=== PATIENT | female | born 1950 | race African-American/Black ===

== ENCOUNTER 2017-01-13 09:02 | Observation (INO) ==
[2017-01-13] MEDS ORDERED: DUONEB (A & A) INH ONE (09:19)
[2017-01-13] MEDS ORDERED: SOLU-MEDROL IV ONE (09:19)
--- NOTE | 2017-01-13 10:12 | Diag Imaging Result Document ---
PROCEDURE NAME: CHEST-2 VIEWS - 01/13/2017 CHEST X-RAY, 2 VIEWS: COMPARISON: 07/22/2016. FINDINGS: Stable left chest port in good position. Stable cardiomegaly and diffuse pulmonary vascular congestion. Stable calcified granulomas in the hilum on the left. No focal infiltrates. No pneumothorax or pleural effusion. Stable high-grade compression fracture at the lower thoracic spine. IMPRESSION: Cardiomegaly and pulmonary vascular congestion. No definite edema.
[2017-01-13 10:16] LABS: BLOOD TYPE ARTERIAL; DRAW SITE R RADIAL; METHB 2.3 % (0.0-1.5); O2(CT) 7.5 mL/dL (15.0-23.0); PCO2(98.6) 32 mmHg (35-45); PO2(98.6) 76 mmHg (60-100); SAMPLE BLOOD; SAO2 95.9 % (95.0-100.0); THB 5.9 g/dL (11.5-17.4); pH(98.6) 7.41 (7.35-7.45)
[2017-01-13 10:18] LABS: MODALITY ROOM AIR
[2017-01-13 10:19] LABS: ALLEN TEST YES
[2017-01-13 10:21] LABS: BASO% 1.8 % (0.0-0.8); EOS# 0.61 X1000 (0.0-0.7); EOS% 6.9 % (0.0-10.0); HEMATOCRIT 17.1 % (37.0-47.0); IMM GRAN# 0.02 X1000 (0.0-0.04); IMM GRAN% 0.2 % (0.0-0.5); LYMPH% 33.8 % (20.5-51.1); MCH 32.4 PG (27-31); MCHC 33.3 g/dL (33-37); MCV 97.2 FL (81-99); MONO# 1.24 X1000 (0.11-0.59); MPV 10.9 FL (7.4-10.4); NEUT% 43.3 % (42.2-75.2); PLT 217 X1000 (130-400); RBC 1.76 XMIL (4.2-5.4)
[2017-01-13 10:22] LABS: HEMOGLOBIN 5.7 g/dL (12.0-16.0); MANUAL DIFF NEEDED? NO
[2017-01-13 10:23] LABS: ALBUMIN 3.9 g/dL (3.5-5.0); CALCIUM 8.7 mg/dL (8.8-10.2); INR 1.29 (0.86-1.15); MAGNESIUM 2.1 mg/dL (1.5-2.7); POTASSIUM 5.2 mmol/L (3.5-5.1); PROTIME 16.4 Seconds (12.1-15.5); TOTAL BILIRUBIN 4.4 mg/dL (0.20-1.00); TOTAL PROTEIN 7.2 g/dL (6.3-8.3)
[2017-01-13 10:25] LABS: RETIC% 22.18 % (0.8-2.1); RETIC-HE 31.5 PG (28.2-36.6)
[2017-01-13 10:33] LABS: AMYLASE 120 U/L (20-200); LIPASE 99 U/L (13-60)
--- NOTE | 2017-01-13 10:36 | EKG Report ---
Test Performed on : 01/13/2017 09:57:38 AM Test Reason : CHEST PAIN Blood Pressure : / mmHG Vent. Rate : 104 BPM Atrial Rate : 104 BPM P-R Int : 170 ms QRS Dur : 082 ms QT Int : 358 ms P-R-T Axes : 039 062 -07 degrees QTc Int : 470 ms Sinus tachycardia. Cannot rule out Inferior infarct , age undetermined Abnormal ECG When compared with ECG of 22-JUL-2016 09:04, Minimal criteria for Inferior infarct are now present Inverted T waves have replaced nonspecific T wave abnormality in Inferior leads T wave amplitude has increased in Lateral leads Unconfirmed Result
[2017-01-13] MEDS ORDERED: NS 1,000 ML IV ONE (10:39)
--- NOTE | 2017-01-13 10:42 | PROVIDER DOCUMENTATION ---
HPI-Respiratory General - General Chief Complaint: Shortness of Breath Stated Complaint: SOB Time Seen by Provider: 01/13/17 09:19 Source: patient Allergies/Adverse Reactions: Patient Allergies Allergy/AdvReac Type Severity Reaction Status Date / Time oxycodone HCl * AdvReac Intermediate NAUSEA/VOMI Verified 09/18/16 14:40 [From Percocet] TING Home Medications: Home Medication List Medication Instructions Recorded Confirmed Last Taken Type Hydrocodone/Acetaminophen [Lortab 10 tab PO Q4-6H PRN PRN 08/22/12 09/18/1605/29 18:00 History 10-500 Tablet] Metoprolol [Lopressor] 50 mg PO BID 08/22/12 09/18/16 07/21/16 18:00 History Losartan/Hctz [Hyzaar 50/12.5 mg] 1 tab PO DAILY 06/18/13 09/18/16 04/21/16 10: 00 History 1 EACH Folic Acid 1 mg PO DAILY 04/04/15 09/18/16 07/21/16 09:00 History Furosemide [Lasix] 40 mg PO DAILY 10/06/15 09/18/16 07/21/16 09:00 History Cyanocobalamin (Vitamin B-12) 1,000 mcg PO DAILY 12/26/15 09/18/16 07/21/16 History [Vitamin B12] 1 Hydroxyzine Pamoate [Vistaril] 25 mg PO 4XDAY #100 capsule 06/16/16 09/18/1605/29 18:00 Rx Levothyroxine [Synthroid] 50 microgm PO DAILY@0700 #30 tablet 09/21/16 Unknown Rx - History of Present Illness-Resp Nature of Presenting Problem: 66 yo AAF with hx of sickel cell disease presents to ED with cc of SoB and cough x 2-3 days. Pt reports current sickel cell crisis pain and that she is supposed to have a transfusion today. Upon arrival to ED, pt is in mild distress. Quality of Pain: reports: other (sickel cell flare in addition to respiratory symptoms) Severity in ED: reports: mild, moderate Onset/Duration: reports: abrupt, 2 days ago, 3 days ago Timing: reports: still present Context: denies: recent foreign travel, insect bite (possible tick), recent chemotherapy, multiple patients with similar complaints, recent URI, out of meds , sports/exercise, aspiration/choking, other Cough Quality/Degree: reports: dry cough Current Respiratory Medication Therapy: Initiated none Associated Symptoms: reports: cough, shortness of breath Similar Symptoms Previously?: No Recently seen or treated by another doctor?: No Review of Systems - Adult - REVIEW OF SYSTEMS - ADULT Constitutional: reports: no symptoms reported. denies: chills, fever Eyes: reports: no symptoms reported. denies: blurred vision, double vision Ears, Nose, Mouth & Throat: reports: no symptoms reported. denies: ear pain, nose pain Cardiovascular: reports: no symptoms reported. denies: chest pain, palpitations Respiratory: reports: cough, shortness of breath Gastrointestinal: reports: no symptoms reported. denies: abdominal pain, nausea Genitourinary: reports: no symptoms reported. denies: dysuria, flank pain Musculoskeletal: reports: no symptoms reported. denies: bone pain, joint pain, muscle aches Integumentary: reports: no symptoms reported. denies: hives, itching Neurological: reports: no symptoms reported. denies: dizziness/vertigo, numbness Psychiatric: reports: no symptoms reported. denies: anxiety, depression Endocrine: reports: no symptoms reported. denies: cold intolerance, heat intolerance Hematologic/Lymphatic: reports: other (sickel cell crisis). denies: blood clots , low blood count Allergic/Immunologic: reports: no symptoms reported. denies: allergic reactions , eczema All Other Systems: Reviewed and Negative Past History - Adult - PAST MEDICAL HISTORY-ADULT Review of Records: reports: Old Records Reviewed, Nursing Assessment Review, Medications Reviewed Cardiovascular: reports: CHF, HTN Respiratory: denies: asthma, bronchitis, COPD, pneumonia Gastrointestinal: reports: cholelithiasis Genitourinary: denies: kidney disease, kidney stones, polycystic kidney disease Musculoskeletal: reports: chronic pain Endocrine/Immune: reports: Sickle Cell disease Sickle Cell Genotype:: SS Other Conditions: - PRIOR SURGERIES/PROCEDURES Surgical/Procedure History: reports: cholecystectomy, hysterectomy, tonsillectomy, other (port) - PRIOR HOSPITALIZATIONS Prior Hospitalizations: reports: for similar symptoms - IMMUNIZATION STATUS Childhood Immunizations: See Nurse Assessment Flu Vaccine: See Nurse Assessment - FAMILY HISTORY Family History: hereditary disease Physical Exam-General - PHYSICAL EXAM-ADULT Initial Vital Signs Reviewed: Yes - CONSTITUTIONAL General Appearance: appears well, alert, mild distress - EYES Eyes: PERRL/EOMI, pink conjunctivae - HEAD, EARS, NOSE, MOUTH & THROAT HENMT: normocephalic/atraumatic, moist mucous membranes - NECK Neck: full range of motion, supple - RESPIRATORY Respiratory: chest non-tender, lungs clear, normal breath sounds - CARDIOVASCULAR Cardiovascular: normal peripheral pulses, regular rate, rhythm - CHEST (BREASTS) Chest/Breast: deferred - GASTROINTESTINAL (ABDOMEN) Abdominal Exam: normal bowel sounds, non tender, soft - GENITOURINARY Female Genitalia/Pelvic Exam: deferred - LYMPHATIC Lymphatic: no adenopathy - MUSCULOSKELETAL Back Exam: normal inspection, no vertebral tenderness Extremity: normal range of motion, non-tender, no pedal edema - SKIN Integumentary: normal color, normal turgor, warm/dry - NEUROLOGIC Neurologic: grossly normal, no motor/sensory deficits - PSYCHIATRIC Psych/Mental Status: normal mood/affect, normal thought content, normal thought process, oriented x 3 Progress - PLAN OF CARE/RESULTS Progress/Plan/Lab Results: Vital Signs - 24 hr 01/13/17 01/13/17 09:10 10:48 Temperature 97.6 F Pulse Rate 112 H 112 H Respiratory 24 24 Rate Blood Pressure 168/81 O2 Sat by Pulse 94 L 96 Oximetry Orders Category Date Time Status Cardiac Monitoring DIRECTED Care 01/13/17 09:13 Active Oxygen Therapy- ED Nursing DIRECTED Care 01/13/17 09:13 Active Saline Loc NOW Care 01/13/17 09:13 Active Transfuse .Give-Transfuse Care 01/13/17 10:54 Active CHEST-2 VIEWS [RAD] Stat Exams 01/13/17 09:13 Draft ABG [RESP] Routine Lab 01/13/17 09:45 Completed AMYLASE [CHEM] Stat Lab 01/13/17 09:40 Completed BLOOD CULTURE [BLDCUL] Stat Lab 01/13/17 09:19 Ordered CBC WITH ELECTRONIC DIFF [HEME] Stat Lab 01/13/17 09:40 Completed CK PROFILE [SP CHEM] Stat Lab 01/13/17 09:40 Completed COMPREHENSIVE METABOLIC PANEL [CHEM] Stat Lab 01/13/17 09:40 Completed LIPASE [CHEM] Stat Lab 01/13/17 09:40 Completed LRPC (RED CELLS) [BBK] Routine Lab 01/13/17 09:40 Results MAGNESIUM [CHEM] Stat Lab 01/13/17 09:40 Completed PRO B-NATRIURETIC PEPTIDE Stat Lab 01/13/17 09:40 Completed PROTIME WITH INR PL [COAG] Stat Lab 01/13/17 09:[address] [COAG] Stat Lab 01/13/17 09:40 Completed RETIC COUNT [HEME] Stat Lab 01/13/17 09:40 Completed TROPONIN T Stat Lab 01/13/17 09:40 Completed TYPE & SCREEN [BBK] Stat Lab 01/13/17 09:40 Results UA [URINALYSIS PL W/POSS RFLX CULT] [URINALYSIS] Stat Lab 01/13/17 Results 0.9% Sodium Chloride Inj [Ns] 1,000 ml Med 01/13/17 10:39 Discontinued IV 250 mls/hr 0.9% Sodium Chloride Inj [Ns] 500 ml Med 01/13/17 10:54 Discontinued IV As Directed 0.9% Sodium Chloride Inj [Ns] 500 ml Med 01/13/17 10:55 Discontinued IV As Directed Albuterol 2.5MG/Ipratrop 0.5MG [Duoneb (A & A)] Med 01/13/17 09:19 Discontinued 3 ml INH NOW ONE Furosemide [Lasix] Med 01/13/17 11:00 Active 40 mg IV AFTER TRANSFUSION Hydrocodone/APAP 7.5 mg/325 mg [[place]-7.5] Med 01/13/17 10:56 Discontinued 1 each PO NOW ONE Levofloxacin 750 mg/D5w [Levaquin 750 mg/D5w] 150 ml Med 01/13/17 10:46 Active IV NOW Methylprednisolone Sod Succ [Solu-Medrol] Med 01/13/17 09:19 Discontinued 125 mg IV NOW ONE Aerosol Treatments Routine Oth 01/13/17 09:20 Completed Aerosol Treatments Stat Oth 01/13/17 09:20 Completed EKG [EKG] Stat Ther 01/13/17 09:13 Draft Transfer/Admit Order [TRANSFER] Routine Transfer 01/13/17 10:55 Ordered Laboratory Tests 01/13/17 01/13/17 01/13/17 09:40 09:40 09:40 WBC RBC Hgb Hct MCV MCH MCHC RDW Std Deviation Plt Count MPV Immature Gran % (Auto) Neut % (Auto) Lymph % (Auto) [place] % (Auto) Eos % (Auto) Baso % (Auto) Immature Gran # (Auto) Neut # (Auto) Lymph # (Auto) [place] # (Auto) Eos # (Auto) Baso # (Auto) Segmented Neutrophils Percent Retic Retic Hgb Equivalent PT INR APTT (Factor Assay) Specimen Type Sample Site pH pCO2 pO2 HCO3 Base Excess Oxyhemoglobin ABG O2 Sat (Calculated) ABG O2 Saturation ABG Carboxyhemoglobin ABG Methemoglobin [place] Test A-a O2 Difference Total Hemoglobin Lactate Blood Gas Modality FiO2 % Sodium 139 Potassium 5.2 H Chloride 108 H Carbon Dioxide 20 L Anion Gap 11 BUN 21 Creatinine 1.2 H Estimated GFR/1.73 m2 45 BUN/Creatinine Ratio 18 Glucose 125 H Calculated Osmolality 282 Calcium 8.7 L Magnesium 2.1 Total Bilirubin 4.40 H AST 73 H ALT 34 Alkaline Phosphatase 107 H Creatine Kinase 47 Troponin T < 0.010 [id number]-Ryuuszykmxt Pept 940 H Total Protein 7.2 Albumin 3.9 Globulin 3.0 Albumin/Globulin Ratio 1.0 Amylase Lipase Urine Source Urine Color Urine Clarity Urine pH Ur Specific [place] Urine Protein Urine Ketones Urine Blood Urine Nitrite Urine Bilirubin Urine Urobilinogen Urine WBC Urine Glucose Blood Type Antibody Screen Crossmatch 01/13/17 01/13/17 01/13/17 09:40 09:40 09:40 WBC 8.88 RBC 1.76 L Hgb 5.7 L* Hct 17.1 L MCV 97.2 MCH 32.4 H MCHC 33.3 RDW Std Deviation 26.5 H Plt Count 217 MPV 10.9 H Immature Gran % (Auto) 0.2 Neut % (Auto) 43.3 Lymph % (Auto) 33.8 [place] % (Auto) 14.0 H Eos % (Auto) 6.9 Baso % (Auto) 1.8 H Immature Gran # (Auto) 0.02 Neut # (Auto) 3.85 Lymph # (Auto) 3.00 [place] # (Auto) 1.24 H Eos # (Auto) 0.61 Baso # (Auto) 0.16 Segmented Neutrophils Not Reportable Percent Retic Retic Hgb Equivalent PT 16.4 H INR 1.29 H APTT (Factor Assay) 164.6 H* Specimen Type Sample Site pH pCO2 pO2 HCO3 Base Excess Oxyhemoglobin ABG O2 Sat (Calculated) ABG O2 Saturation ABG Carboxyhemoglobin ABG Methemoglobin [place] Test A-a O2 Difference Total Hemoglobin Lactate Blood Gas Modality FiO2 % Sodium Potassium Chloride Carbon Dioxide Anion Gap BUN Creatinine Estimated GFR/1.73 m2 BUN/Creatinine Ratio Glucose Calculated Osmolality Calcium Magnesium Total Bilirubin AST ALT Alkaline Phosphatase Creatine Kinase Troponin T [id number] Pept Total Protein Albumin Globulin Albumin/Globulin Ratio Amylase 120 Lipase 99 H Urine Source Urine Color Urine Clarity Urine pH Ur Specific [place] Urine Protein Urine Ketones Urine Blood Urine Nitrite Urine Bilirubin Urine Urobilinogen Urine WBC Urine Glucose Blood Type Antibody Screen Crossmatch 01/13/17 01/13/17 01/13/17 09:40 09:40 09:45 WBC RBC Hgb Hct MCV MCH MCHC RDW Std Deviation Plt Count MPV Immature Gran % (Auto) Neut % (Auto) Lymph % (Auto) [place] % (Auto) Eos % (Auto) Baso % (Auto) Immature Gran # (Auto) Neut # (Auto) Lymph # (Auto) [place] # (Auto) Eos # (Auto) Baso # (Auto) Segmented Neutrophils Percent Retic 22.18 H Retic Hgb Equivalent 31.5 PT INR APTT (Factor Assay) Specimen Type ARTERIAL Sample Site R RADIAL pH 7.41 pCO2 32 L pO2 76 HCO3 21.8 Base Excess -4.0 L Oxyhemoglobin 89.0 L* ABG O2 Sat (Calculated) 7.5 L ABG O2 Saturation 95.9 ABG Carboxyhemoglobin 4.90 H ABG Methemoglobin 2.3 H [place] Test YES A-a O2 Difference 34.0 Total Hemoglobin 5.9 L Lactate 0.90 Blood Gas Modality ROOM AIR FiO2 % 21.0 Sodium Potassium Chloride Carbon Dioxide Anion Gap BUN Creatinine Estimated GFR/1.73 m2 BUN/Creatinine Ratio Glucose Calculated Osmolality Calcium Magnesium Total Bilirubin AST ALT Alkaline Phosphatase Creatine Kinase Troponin T [id number]-Rpoywcyjlzi Pept Total Protein Albumin Globulin Albumin/Globulin Ratio Amylase Lipase Urine Source Urine Color Urine Clarity Urine pH Ur Specific [place] Urine Protein Urine Ketones Urine Blood Urine Nitrite Urine Bilirubin Urine Urobilinogen Urine WBC Urine Glucose Blood Type A POSITIVE Antibody Screen NEGATIVE Crossmatch See Detail 01/13/17 Unknown WBC RBC Hgb Hct MCV MCH MCHC RDW Std Deviation Plt Count MPV Immature Gran % (Auto) Neut % (Auto) Lymph % (Auto) [place] % (Auto) Eos % (Auto) Baso % (Auto) Immature Gran # (Auto) Neut # (Auto) Lymph # (Auto) [place] # (Auto) Eos # (Auto) Baso # (Auto) Segmented Neutrophils Percent Retic Retic Hgb Equivalent PT INR APTT (Factor Assay) Specimen Type Sample Site pH pCO2 pO2 HCO3 Base Excess Oxyhemoglobin ABG O2 Sat (Calculated) ABG O2 Saturation ABG Carboxyhemoglobin ABG Methemoglobin [place] Test A-a O2 Difference Total Hemoglobin Lactate Blood Gas Modality FiO2 % Sodium Potassium Chloride Carbon Dioxide Anion Gap BUN Creatinine Estimated GFR/1.73 m2 BUN/Creatinine Ratio Glucose Calculated Osmolality Calcium Magnesium Total Bilirubin AST ALT Alkaline Phosphatase Creatine Kinase Troponin T [id number]-M-Uyedgcdepzs Pept Total Protein Albumin Globulin Albumin/Globulin Ratio Amylase Lipase Urine Source CLEAN CATCH Urine Color YELLOW Urine Clarity CLEAR Urine pH 7.0 Ur Specific [place] 1.005 Urine Protein 2+(100 mg/dL) A Urine Ketones NEGATIVE Urine Blood 4+ Urine Nitrite NEGATIVE Urine Bilirubin NEGATIVE Urine Urobilinogen 4+(12 mg/dL) Urine WBC TRACE A Urine Glucose NEGATIVE Blood Type Antibody Screen Crossmatch - EKG 1 Time of EKG reading by physician:: 09:57 EKG Read and Signed by:: Kristie Nichole EKG Interpretation (*Must complete 3 of following elements*): Abnormal Rate: 104 Rhythm: sinus tachycardia [place]: normal Comments: cannot rule out inferior infarct, age undetermined Attestation - Scribe Verification/Attestation Scribe:: Elsy Turcios Acting as Scribe for:: Kristie Nichole Scribe documention review:: This chart was documented by a scribe and accurately reflects the service the provider performed and the decisions made by the provider. - Physician/ SEBASTIAN Attestation Patient care was provided by Advanced Practice Provider:: No
[2017-01-13] MEDS ORDERED: LEVAQUIN 750 MG/D5W 150 ML IV ONE (10:46)
[2017-01-13 10:54] LABS: PTT PL 164.6 Seconds (22.6-43.9)
[2017-01-13] MEDS ORDERED: NS 500 ML IV ONE ×3 (10:54→11:44)
[2017-01-13] MEDS ORDERED: NORCO-7.5 PO ONE (10:56)
[2017-01-13 11:01] LABS: URINE SOURCE CLEAN CATCH
[2017-01-13 11:32] LABS: BILIRUBIN URINE NEGATIVE (NEGATIVE); BLOOD URINE 4+ (NEGATIVE); CLARITY CLEAR (CLEAR); COLOR YELLOW; GLUCOSE URINE NEGATIVE (NEGATIVE); LEUKOCYTES URINE TRACE (NEGATIVE); NITRITE URINE NEGATIVE (NEGATIVE); PROTEIN URINE 2+(100 mg/dL) mg/dL (NEGATIVE); SP GRAVITY URINE 1.005; UROBILINOGEN URINE 4+(12 mg/dL)
[2017-01-13] MEDS ORDERED: BENADRYL PO ONE (11:44)
[2017-01-13] MEDS ORDERED: TYLENOL PO ONE (11:44)
[2017-01-13 11:51] LABS: URINE EPITHELIAL CELLS <10 /HPF (<10); URINE RBC <10 /HPF (<10); URINE WBC <10 /HPF (<10)
[2017-01-13 11:52] LABS: URINE CULTURE PL NEEDED? YES
--- NOTE | 2017-01-13 12:56 | HISTORY AND PHYSICAL ---
PRIMARY CARE PHYSICIAN: Dr. Shefali Posadas. CHIEF COMPLAINT: Shortness of breath and cough for 2-3 days prior to arrival that have worsened. HISTORY OF PRESENTING ILLNESS: This is a 66-year-old, -[place] female, who is well known to this service with a history of sickle cell disease, COPD, chronic pain, CHF. She presents to the emergency room complaining of shortness of breath and a cough for 2-3 days that has progressively worsened. She states she is also having sickle cell pain that is generalized. She rated it an 8/10. She states she was supposed to have an outpatient blood transfusion today but that the pain had increased to the point that she came to the emergency room for evaluation. On arrival, she was noted to have a hemoglobin of 5.7 with a hematocrit of 17.1. Her percent reticulocyte 22.18. She had a potassium of 5.2. Creatinine of 1.2 which is normal for her. Vital Signs: She was noted to be mildly tachycardic at 112 with a blood pressure of 168/81, saturating 94% on room air. Currently she is 96% on 2 L via nasal cannula. She is being admitted for further evaluation and treatment. PAST MEDICAL HISTORY: CHF, hypertension, COPD, and sickle cell disease. PAST SURGICAL HISTORY: Cholecystectomy, hysterectomy, tonsillectomy, and a port placement. FAMILY HISTORY: Two brothers and a sister both have sickle cell disease. SOCIAL HISTORY: She lives with family and denies any tobacco, alcohol, or illicit drug use. ALLERGIES: Oxycodone. HOME MEDICATIONS: We will obtain a current list of her home medications and restart as appropriate. LABORATORY DATA: White blood cell count of 8.88, hemoglobin of 5.7, hematocrit 17.1, platelets 217,000. Percent reticulocyte count was 22.18. PT of 16.4 with an INR of 1.29. PTT of 164.6. ABG with a pH of 7.41, pCO2 of 32, PO2 of 76, bicarb 21.8. Sodium of 139, potassium 5.2, chloride 108. CO2 of 20. BUN of 21, creatinine 1.2, glucose 125. Magnesium of 2.1. Total bilirubin of 4.40. AST 73, ALT 34. Alkaline phosphatase 107. ProBNP of 940. Creatine kinase of 47. Troponin less than 0.010. Amylase of 120, lipase 99. Urinalysis showed negative nitrites, a trace of white blood cells and 2+ bacteria. Chest x-ray showed cardiomegaly and pulmonary vascular congestion. No definite edema. EKG showed sinus tachycardia at 104. REVIEW OF SYSTEMS: She denied any fever, chills, blurred vision, dizziness, chest pain. She was positive for a nonproductive cough, shortness of breath, generalized pain. She denied any constipation, diarrhea, or burning or hurting with urination. PHYSICAL EXAMINATION: VITAL SIGNS: On arrival, she had a temperature of 97.6 degrees, pulse 112, respirations 24, blood pressure 168/81, saturating 94% on room air. GENERAL: This is a 66-year-old female who is lying in the bed, and answers questions appropriately. HEENT: Normocephalic and atraumatic. Pupils are equal, round, AND reactive to light. Extraocular movements are intact. The oropharynx and nares are clear. NECK: Supple. LUNGS: Clear to auscultation bilaterally with equal lung expansion and chest wall movement. HEART: Regular rate and rhythm. No murmurs, rubs, or gallops. ABDOMEN: Soft, nontender, nondistended. Bowel sounds are present x4 quadrants. EXTREMITIES: There is no clubbing, cyanosis, or edema. NEUROLOGIC: The cranial nerves 2-12 are grossly intact. ASSESSMENT: 1. Sickle cell anemia. 2. Sickle cell crisis. 3. Hypertension. 4. Chronic obstructive pulmonary disease, history of. PLAN: She is being admitted to the medical unit at [facility], placed on O2 per protocol, telemetry, healthy heart diet. We will check an echocardiogram today. We will transfuse 2 units of packed red blood cells. We will recheck a CBC and a BMP in the a.m. In the ER, she received Solu-Medrol 125 mg IV x1, 250 mL normal saline bolus, Levaquin 750 mg IV x1, Dilaudid 1 mg IV q. 3 hours p.r.n., Tylenol 650 mg p.o. q.6 hours p.r.n., and Lasix 40 mg IV after her transfusions are completed, and a urine culture is pending. Dictated by TAM Alexander for Charly Moraes MD
[2017-01-13] MEDS: DILAUDID IV PRN ×2 (15:24→23:14)
[2017-01-13] MEDS ORDERED: NORCO-7.5 PO PRN (16:19)
[2017-01-13] MEDS: LASIX IV SCH ×2 (17:41→23:14)
[2017-01-13 20:45] LABS: INR MIXING STUDY 0 MIN 1.07; INR MIXING STUDY 30 MIN 1.07; INR MIXING STUDY 60 MIN 1.07; PROTIME MIXING STUDY 3O MIN 11.3 Seconds (9.2-11.7); PROTIME MIXING STUDY 6O MIN 11.3 Seconds (9.2-11.7); PROTIME MIXING STUDY O MIN 11.3 Seconds (9.2-11.7); PTT MIXING STUDY 3O MIN 28.3 Seconds (22.0-36.0); PTT MIXING STUDY O MIN 26.8 Seconds (22.0-36.0)
[2017-01-13 20:46] LABS: INR MIXING STUDY 120 MIN 1.1; INR MIXING STUDY 90 MIN 1.08; PROTIME MIXING STUDY 12O MIN 11.7 Seconds (9.2-11.7); PROTIME MIXING STUDY 9O MIN 11.5 Seconds (9.2-11.7); PTT MIXING STUDY 12O MIN 30.7 Seconds (22.0-36.0); PTT MIXING STUDY 6O MIN 29.4 Seconds (22.0-36.0); PTT MIXING STUDY 9O MIN 30.8 Seconds (22.0-36.0)
[2017-01-13] MEDS: TYLENOL PO PRN (21:00)
[2017-01-14 06:26] LABS: CALCIUM 8.7 mg/dL (8.8-10.2); POTASSIUM 5.9 mmol/L (3.5-5.1)
[2017-01-14 06:39] LABS: BASO% 0.3 % (0.0-0.8); EOS# 0.09 X1000 (0.0-0.7); EOS% 0.8 % (0.0-10.0); HEMATOCRIT 23.2 % (37.0-47.0); HEMOGLOBIN 7.8 g/dL (12.0-16.0); IMM GRAN# 0.03 X1000 (0.0-0.04); IMM GRAN% 0.3 % (0.0-0.5); LYMPH# 2.41 X1000 (1.2-3.4); LYMPH% 22.5 % (20.5-51.1); MANUAL DIFF NEEDED? YES; MCHC 33.6 g/dL (33-37); MCV 86.2 FL (81-99); MONO# 1.52 X1000 (0.11-0.59); MONO% 14.2 % (1.7-9.3); MPV 11.2 FL (7.4-10.4); NEUT% 61.9 % (42.2-75.2); PLT 193 X1000 (130-400); RBC 2.69 XMIL (4.2-5.4)
[2017-01-14 08:32] LABS: LYMPHS 22 % (21-51); MONO 7 % (1-9)
[2017-01-14] MEDS: DILAUDID IV PRN ×2 (10:27→17:22)
[2017-01-14] MEDS ORDERED: NORCO-10 PO PRN (15:34)
[2017-01-14] MEDS ORDERED: NS 500 ML IV ONE (15:46)
[2017-01-14] MEDS ORDERED: LASIX IV ONE (15:49)
[2017-01-14] MEDS ORDERED: VELTASSA PO ONE (15:51)
--- NOTE | 2017-01-14 16:13 | PROGRESS NOTE ---
DATE: 01/14/2017 SUBJECTIVE: Patient has no focal complaints. OBJECTIVE: Vital signs: Blood pressure 167/77, heart rate of 80, respiratory rate 18, temperature 98.4 degrees, 100% saturation on room air. Cardiovascular: Regular rate and rhythm. Pulmonary: Bilateral breath sounds. Clear to auscultation. GI: Soft, nontender, nondistended. Bowel sounds were positive. Extremities: No clubbing or cyanosis. Lymphatic exam: No peripheral edema. Neurological: Nonfocal. LABORATORY DATA: Hemoglobin and hematocrit is up to 7.8 and 23 after 2 units. Chemistries. Potassium of 5.9, creatinine of 1.4. PROBLEM LIST: 1. Sickle cell disease and anemia. We will transfuse her 1 more unit because she does have significant history of cardiac issues. 2. Hypertension. Resume Norvasc. 3. Chronic renal failure stage 2. I am going to hold her lisinopril just because she does have relative hyperkalemia and follow. Will treat with Veltassa. 4. Disposition pending resolution of her issues. I am still waiting on echocardiogram report to evaluate for any heart failure.
[2017-01-14] MEDS: NORVASC PO SCH (17:22)
--- NOTE | 2017-01-14 17:45 | ECHO REPORT ---
ORDER DATE: 01/14/2017 INTERPRETING PHYSICIAN: Dr. Vazquez REQUESTING PHYSICIAN: CLINICAL INDICATIONS: A 66-year-old female with sickle cell crisis. M-MODE MEASUREMENTS: Right ventricle: 3.3 cm. Left ventricle end diastole: 5.3 cm. Left ventricle end systole: 3.7 cm. Posterior wall: 1.1 cm. Interventricular septum: 1.1 cm. Left atrium: 5.0 cm. Aortic root: 3.0 cm. SUMMARY OF 2-DIMENSIONAL IMAGING: The left ventricular chamber appears to be dilated. The global ejection fraction is probably within normal range in the order of 55-60%. No wall motion abnormality is present. The right ventricle appears to be at least mildly enlarged. The left atrium is significantly dilated. The aortic valve shows some thickening of the cusps with normal opening. Color flow mapping unremarkable. The mitral valve shows some sclerosis of the annulus. Color flow mapping reveals a moderate degree of regurgitation. Pulse wave Doppler of mitral inflow shows "normal" E/A ratio. Tissue Doppler of septal and lateral mitral annulus averages 8 cm per second. The left atrial pressure is probably elevated based on the significant enlargement of the left atrium. The tricuspid valve shows a moderate degree of regurgitation. The inferior vena cava is mildly dilated. Pulmonary pressure is probably somewhere in the range of 67-72 mmHg. The pulmonic valve shows a mild to moderate degree of regurgitation. There is no pericardial effusion. There is no evidence or mass or thrombus. IMPRESSION: In summary, this study shows: 1. Moderately enlarged left ventricle with preserved function. Ejection fraction 55-60%. 2. Moderate degree of mitral and tricuspid regurgitation. 3. Significantly enlarged left atrium. 4. Pulmonary hypertension estimated at 67-72 mmHg. 5. There is also a mild to moderate degree of pulmonary regurgitation. Clinical correlation recommended.
[2017-01-14] MEDS: LOPRESSOR PO SCH (20:20)
[2017-01-15 07:25] LABS: HEMATOCRIT 26.5 % (37.0-47.0); MCH 29.1 PG (27-31); MCV 85.8 FL (81-99); MPV 10.6 FL (7.4-10.4); RBC 3.09 XMIL (4.2-5.4)
[2017-01-15 07:48] LABS: CALCIUM 8.7 mg/dL (8.8-10.2)
[2017-01-15 07:55] LABS: POTASSIUM 6.2 mmol/L (3.5-5.1)
[2017-01-15] MEDS: VITAMIN B-12 PO SCH (08:18)
[2017-01-15] MEDS: LOPRESSOR PO SCH ×2 (08:18→20:40)
[2017-01-15] MEDS: NORVASC PO SCH (08:18)
[2017-01-15] MEDS: FOLIC ACID PO SCH (08:18)
[2017-01-15] MEDS ORDERED: LASIX PO SCH (09:00)
[2017-01-15] MEDS ORDERED: HCTZ PO SCH (09:00)
[2017-01-15] MEDS ORDERED: LOSARTAN PO SCH (09:00)
[2017-01-15] MEDS ORDERED: VELTASSA PO ONE (10:09)
--- NOTE | 2017-01-15 12:37 | PROGRESS NOTE ---
DATE: 01/15/2017 SUBJECTIVE: Patient resting quietly in bed. No complaints voiced. OBJECTIVE: Vital Signs: Temperature 98.6 degrees, pulse 89, respirations 20, blood pressure 148/78, saturating 95% on room air. General: This is a 66-year-old female who is lying in the bed, and answers questions appropriately. HEENT: Normocephalic and atraumatic. Pupils are equal, round, reactive to light. Extraocular movements are intact. The oropharynx and nares are clear. Neck: Supple. Lungs: Clear to auscultation bilaterally with equal lung expansion and chest wall movement. Heart: With regular rate and rhythm. No murmurs, rubs, or gallops. Abdomen: Soft, nontender, nondistended. Bowel sounds are present x4 quadrants. Extremities: No clubbing, cyanosis, or edema. Neurological: The cranial nerves 2-12 are grossly intact. LABORATORY DATA: Showed a white blood cell count of 9.13, hemoglobin 9, hematocrit 26.5, platelets 202,000. Sodium of 134, potassium of 6.2, chloride 104, CO2 20, BUN of 30 with a creatinine of 1.2, glucose of 102. ASSESSMENT: 1. Sickle cell disease and anemia. Her hemoglobin and hematocrit have improved after she received 1 unit of packed red blood cells yesterday. 2. Hyperkalemia. She was to get a dose of Veltassa yesterday but it appears that she did not get that so her potassium has gone up a little bit from 5.9 yesterday to 6.2. We did reorder the Veltassa 8.4 g x1 today and will recheck a BMP in the a.m. 3. Hypertension. Continue her medication regimen. 4. Chronic renal failure, stage 2. Her creatinine has improved slightly. We will continue to hold her lisinopril at this time. Her echocardiogram showed that she has an ejection fraction of 55-60% with preserved left ventricular function. She has a moderate degree of mitral and tricuspid regurgitation and some pulmonary regurgitation that is mild to moderate also. Dictated by TAM Alexander for Charly Moraes MD
--- NOTE | 2017-01-15 18:29 | EKG Report ---
Test Performed on : 01/15/2017 6:11:34 PM Test Reason : hyperkalemia Blood Pressure : / mmHG Vent. Rate : 085 BPM Atrial Rate : 085 BPM P-R Int : 172 ms QRS Dur : 088 ms QT Int : 386 ms P-R-T Axes : 068 070 040 degrees QTc Int : 459 ms Normal sinus rhythm. Normal ECG When compared with ECG of 13-JAN-2017 09:57, Minimal criteria for Inferior infarct are no longer present Non-specific change in ST segment in Lateral leads T wave inversion no longer evident in Inferior leads T wave inversion no longer evident in Lateral leads Unconfirmed Result
[2017-01-16 06:46] LABS: BASO% 1.3 % (0.0-0.8); EOS# 0.65 X1000 (0.0-0.7); EOS% 8.1 % (0.0-10.0); HEMOGLOBIN 8.7 g/dL (12.0-16.0); IMM GRAN# 0.02 X1000 (0.0-0.04); IMM GRAN% 0.3 % (0.0-0.5); LYMPH# 2.41 X1000 (1.2-3.4); LYMPH% 30.2 % (20.5-51.1); MANUAL DIFF NEEDED? YES; MCHC 33.5 g/dL (33-37); MCV 86.7 FL (81-99); MONO# 1.27 X1000 (0.11-0.59); MONO% 15.9 % (1.7-9.3); MPV 10.1 FL (7.4-10.4); NEUT% 44.2 % (42.2-75.2); PLT 164 X1000 (130-400)
[2017-01-16 07:13] LABS: EOS 3 % (1-10); LYMPHS 32 % (21-51); MONO 5 % (1-9); NRBC 1 % (0-0)
[2017-01-16 07:18] LABS: CALCIUM 8.5 mg/dL (8.8-10.2); POTASSIUM 5.5 mmol/L (3.5-5.1)
[2017-01-16] MEDS: VITAMIN B-12 PO SCH (08:21)
[2017-01-16] MEDS: FOLIC ACID PO SCH (08:22)
[2017-01-16] MEDS: NORVASC PO SCH (08:22)
[2017-01-16] MEDS: LOPRESSOR PO SCH (08:22)
[2017-01-16 08:23] VITALS: BP 165/83
[2017-01-16] MEDS ORDERED: G.I. COCKTAIL PO ONE (11:51)
[2017-01-16] MEDS: TYLENOL PO PRN (12:05)
[2017-01-16] MEDS ORDERED: HEPARIN ONE (12:56)
== END 2017-01-16 14:13 | disposition home or self-care (01) ==
LOC: P.ED 09:02 → INTOOBSV 11:30 → P.MEDSURG 11:30
PROVIDERS: ATTEND Internal Medicine
DX: D57.00 Hb-SS disease with crisis, unspecified (principal); E87.5 Hyperkalemia; I12.9 Hypertensive chronic kidney disease with stage 1 through stage 4 chronic kidney disease, or unspecified chronic kidney disease; N18.2 Chronic kidney disease, stage 2 (mild); I08.1 Rheumatic disorders of both mitral and tricuspid valves; J44.9 Chronic obstructive pulmonary disease, unspecified; G89.29 Other chronic pain; R06.02 Shortness of breath; R05 Cough; R00.0 Tachycardia, unspecified; Z79.899 Other long term (current) drug therapy
CPT/HCPCS: 71020; 80048; 80053; 81001; 82150; 82550; 82805; 83690; 83735; 83880; 84484; 85025; 85027; 85045; 85610; 85611; 85730; 86850; 86900; 86901; 86920; 87040; 87088; 93005; 93306; 94640; 94761; 96365; 96372; J1170; J1940; J2930; J7040; P9016; 85732-59

== ENCOUNTER 2017-04-07 19:17 | Inpatient (IN) ==
[2017-04-07] MEDS ORDERED: ASPIRIN PO STA (19:30)
[2017-04-07] MEDS ORDERED: COZAAR PO ONE (19:38)
[2017-04-07] MEDS ORDERED: LASIX IV ONE (19:39)
[2017-04-07 20:22] LABS: BASO% 2.2 % (0.0-0.8); EOS# 0.47 X1000 (0.0-0.7); EOS% 5.5 % (0.0-10.0); HEMATOCRIT 17.3 % (37.0-47.0); IMM GRAN# 0.03 X1000 (0.0-0.04); IMM GRAN% 0.4 % (0.0-0.5); LYMPH# 3.18 X1000 (1.2-3.4); LYMPH% 37.5 % (20.5-51.1); MANUAL DIFF NEEDED? NO; MCH 29.5 PG (27-31); MCHC 32.9 g/dL (33-37); MCV 89.6 FL (81-99); MONO# 1.25 X1000 (0.11-0.59); MONO% 14.7 % (1.7-9.3); MPV 10.2 FL (7.4-10.4); NEUT% 39.7 % (42.2-75.2); PLT 241 X1000 (130-400); RBC 1.93 XMIL (4.2-5.4)
[2017-04-07 20:24] LABS: HEMOGLOBIN 5.7 g/dL (12.0-16.0); INR 1.23 (0.86-1.15); PROTIME 15.8 Seconds (12.1-15.5); PTT PL 29.4 Seconds (22.6-43.9)
[2017-04-07 20:25] LABS: CALCIUM 8.4 mg/dL (8.8-10.2); MAGNESIUM 2.1 mg/dL (1.5-2.7); POTASSIUM 4.4 mmol/L (3.5-5.1); TOTAL BILIRUBIN 3.7 mg/dL (0.20-1.00); TOTAL PROTEIN 7.4 g/dL (6.3-8.3)
[2017-04-07] MEDS ORDERED: NS 1,000 ML IV SCH (20:53)
--- NOTE | 2017-04-07 20:56 | PROVIDER DOCUMENTATION ---
This chart was entered by Yumiko Herndon Scribe, acting as scribe for Mahesh Hernandez MD. HPI-Respiratory General - General Chief Complaint: Shortness of Breath Stated Complaint: S.O.B,retaining fluid Time Seen by Provider: 04/07/17 19:29 Source: patient Allergies/Adverse Reactions: Patient Allergies Allergy/AdvReac Type Severity Reaction Status Date / Time oxycodone HCl * AdvReac Intermediate NAUSEA/VOMI Verified 09/18/16 14:40 [From Percocet] TING Home Medications: Home Medication List Medication Instructions Recorded Confirmed Last Taken Type Hydrocodone/Acetaminophen [Lortab 10 tab PO Q4-6H PRN PRN 08/22/12 01/14/1711/30 History 10-500 Tablet] Metoprolol [Lopressor] 50 mg PO BID 08/22/12 01/14/17 01/12/17 History 50mg Losartan/Hctz [Hyzaar 50/12.5 mg] 1 tab PO DAILY 06/18/13 01/14/17 01/12/17 History Folic Acid 1 mg PO DAILY 04/04/15 01/14/17 01/12/17 History Furosemide [Lasix] 40 mg PO DAILY 10/06/15 01/14/17 01/12/17 History Cyanocobalamin (Vitamin B-12) 1,000 mcg PO DAILY 12/26/15 01/14/17 01/12/17 History [Vitamin B12] Ketorolac [Toradol] 10 mg PO Q6H PRN PRN #6 tablet 02/14/17 Unknown Rx Ondansetron [Zofran] 4 mg PO Q6H PRN PRN #20 tablet 02/14/17 Unknown Rx - History of Present Illness-Resp Nature of Presenting Problem: 67 year old F presents to the ED with a cc increased swelling and SOB when walking x1 week. PT states that she ran out Hyzaar 2 weeks ago. Severity in ED: reports: mild Onset/Duration: reports: 1 week ago Timing: reports: still present Cough Quality/Degree: reports: no cough Current Respiratory Medication Therapy: Initiated see nurses note Associated Symptoms: reports: shortness of breath Similar Symptoms Previously?: No Recently seen or treated by another doctor?: No Review of Systems - Adult - REVIEW OF SYSTEMS - ADULT Constitutional: denies: chills, fever Eyes: reports: no symptoms reported Ears, Nose, Mouth & Throat: reports: no symptoms reported Cardiovascular: reports: edema. denies: chest pain, palpitations Respiratory: reports: shortness of breath. denies: cough Gastrointestinal: denies: nausea, vomiting Genitourinary: reports: no symptoms reported Musculoskeletal: reports: no symptoms reported Integumentary: reports: no symptoms reported Neurological: reports: no symptoms reported Psychiatric: reports: no symptoms reported Endocrine: reports: no symptoms reported Hematologic/Lymphatic: reports: no symptoms reported Allergic/Immunologic: reports: no symptoms reported All Other Systems: Reviewed and Negative Past History - Adult - PAST MEDICAL HISTORY-ADULT Review of Records: reports: Nursing Assessment Review, Medications Reviewed Major Childhood Illnesses: reports: denies history Cardiovascular: reports: CHF, HTN Respiratory: denies: asthma, bronchitis, COPD, pneumonia Gastrointestinal: reports: cholelithiasis Genitourinary: denies: kidney disease, kidney stones, polycystic kidney disease Musculoskeletal: reports: chronic pain Endocrine/Immune: reports: Sickle Cell disease Sickle Cell Genotype:: SS Other Conditions: - PRIOR SURGERIES/PROCEDURES Surgical/Procedure History: reports: cholecystectomy, hysterectomy, tonsillectomy, other (port) - PRIOR HOSPITALIZATIONS Prior Hospitalizations: reports: for similar symptoms - IMMUNIZATION STATUS Childhood Immunizations: See Nurse Assessment Flu Vaccine: See Nurse Assessment - FAMILY HISTORY Family History: hereditary disease - SOCIAL HISTORY Smoking: non-smoker Substance Use: none/never Alcohol Use Frequency: never Physical Exam-General - PHYSICAL EXAM-ADULT Initial Vital Signs Reviewed: Yes - CONSTITUTIONAL General Appearance: appears well, alert, no apparent distress - RESPIRATORY Respiratory: chest non-tender, lungs clear, normal breath sounds - CARDIOVASCULAR Cardiovascular: normal peripheral pulses, regular rate, rhythm, no edema - MUSCULOSKELETAL Extremity: pedal edema (2+ bilateral lower extremity) - SKIN Integumentary: normal color, normal turgor, warm/dry - PSYCHIATRIC Psych/Mental Status: normal mood/affect, normal thought content, normal thought process, oriented x 3 Progress - PLAN OF CARE/RESULTS Progress/Plan/Lab Results: Vital Signs - 8 hr 04/07/17 19:26 04/07/17 20:36 Temperature 98.7 F Pulse Rate 86 84 Respiratory Rate 20 18 Blood Pressure 175/098 160/104 O2 Sat by Pulse Oximetry 94 L 95 Laboratory Results - last 24 hr 04/07/17 04/07/17 04/07/17 19:52 19:52 19:52 WBC RBC Hgb Hct MCV MCH MCHC RDW Std Deviation Plt Count MPV Immature Gran % (Auto) Neut % (Auto) Lymph % (Auto) [place] % (Auto) Eos % (Auto) Baso % (Auto) Immature Gran # (Auto) Neut # (Auto) Lymph # (Auto) [place] # (Auto) Eos # (Auto) Baso # (Auto) PT INR APTT (Factor Assay) D-Dimer Sodium 138 Potassium 4.4 Chloride 108 H Carbon Dioxide 19 L Anion Gap 11 BUN 32 H Creatinine 1.3 H Estimated GFR/1.73 m2 41 BUN/Creatinine Ratio 25 Glucose 111 H Calculated Osmolality 283 Calcium 8.4 L Magnesium 2.1 Total Bilirubin 3.70 H AST 86 H ALT 30 Alkaline Phosphatase 120 H Creatine Kinase 36 Troponin T < 0.010 Ggn-V-Btnqwurfgar Pept 1427 H Total Protein 7.4 Albumin 4.0 Globulin 3.0 Albumin/Globulin Ratio 1.0 04/07/17 04/07/17 19:52 19:52 WBC 8.48 RBC 1.93 L Hgb 5.7 L* Hct 17.3 L MCV 89.6 MCH 29.5 MCHC 32.9 L RDW Std Deviation 30.7 H Plt Count 241 MPV 10.2 Immature Gran % (Auto) 0.4 Neut % (Auto) 39.7 L Lymph % (Auto) 37.5 [place] % (Auto) 14.7 H Eos % (Auto) 5.5 Baso % (Auto) 2.2 H Immature Gran # (Auto) 0.03 Neut # (Auto) 3.36 Lymph # (Auto) 3.18 [place] # (Auto) 1.25 H Eos # (Auto) 0.47 Baso # (Auto) 0.19 PT 15.8 H INR 1.23 H APTT (Factor Assay) 29.4 D-Dimer 2.39 H Sodium Potassium Chloride Carbon Dioxide Anion Gap BUN Creatinine Estimated GFR/1.73 m2 BUN/Creatinine Ratio Glucose Calculated Osmolality Calcium Magnesium Total Bilirubin AST ALT Alkaline Phosphatase Creatine Kinase Troponin T Mds-B-Jpnocuguufn Pept Total Protein Albumin Globulin Albumin/Globulin Ratio Orders Category Date Time Status Admit - [facility] Routine AdmDCTranf 04/07/17 20:36 Ordered Activity - Bed Rest with BRP ORDERED Care 04/07/17 20:36 Active Call Admitting on Arrival AT ADMISSION Care 04/07/17 20:37 Active Cardiac Monitoring DIRECTED Care 04/07/17 19:30 Active Saline Loc DIRECTED Care 04/07/17 20:36 Active Saline Loc NOW Care 04/07/17 19:30 Active Transfuse .Give-Transfuse Care 04/07/17 20:28 Active Vital Signs Order ARRIVAL TO ROOM Care 04/07/17 20:36 Active Regular Diet Diet 04/07/17 20:37 Active CHEST-2 VIEWS [RAD] Stat Exams 04/07/17 19:30 Taken CBC WITH ELECTRONIC DIFF [HEME] Stat Lab 04/07/17 19:52 Completed CK PROFILE [SP CHEM] Stat Lab 04/07/17 19:52 Completed COMPREHENSIVE METABOLIC PANEL [CHEM] Stat Lab 04/07/17 19:52 Completed D-DIMER [address] [COAG] Stat Lab 04/07/17 19:52 Completed LRPC (RED CELLS) [BBK] Stat Lab 04/07/17 20:20 Received MAGNESIUM [CHEM] Stat Lab 04/07/17 19:52 Completed PRO B-NATRIURETIC PEPTIDE Stat Lab 04/07/17 19:52 Com[address]IME WITH INR PL [COAG] Stat Lab 04/07/17 19:[address] [COAG] Stat Lab 04/07/17 19:52 Completed TROPONIN T Stat Lab 04/07/17 19:52 Completed TYPE & SCREEN [BBK] Stat Lab 04/07/17 20:20 Received Aspirin Med 04/07/17 19:30 Discontinued 325 mg PO STAT STA Furosemide [Lasix] Med 04/07/17 19:39 Discontinued 40 mg IV NOW ONE Losartan [Cozaar] Med 04/07/17 19:38 Discontinued 50 mg PO NOW ONE EKG [EKG] Stat Ther 04/07/17 19:30 Ordered Transfer/Admit Order [TRANSFER] Routine Transfer 04/07/17 20:37 Ordered Result Diagrams: 04/07/17 19:52 04/07/17 19:52 - XRAY 1 XRAY Study: Chest Impression: Abnormal Comparison with other Films: no changes XRAY Interpretation: cardiomegally, unchanged: Dr. Hernandez - CONSULTS/PCP/HOSPITALIST Notification #1 *Consult/PCP/Hospitalist*: Dr. Damico: Dr. Hernandez(ER MD) Time Discussed: 20:36 Consult Disposition: Admit Departure - Departure Time of Disposition Decision: 20:55 DIAGNOSIS: Dependent edema Sickle cell anemia Qualifiers: Sickle-cell associated disorders: without crisis Qualified Code(s): D57.1 - Sickle-cell disease without crisis Disposition: ADMITTED INPATIENT 09 Certified Medical Emergency: Emergent Condition: Fair - Critical Care Note This patient required my direct & personal management of CC.: No This chart was documented by the indicated scribe, (Yumiko Herndon Scribe) and accurately reflects the services I performed and decisions made by me, Mahesh Hernandez MD, as attested by the provider's signature.
--- NOTE | 2017-04-08 07:56 | Diag Imaging Result Doc PS360 ---
CHEST-2 VIEWS - 04/07/2017 INDICATION: CP TECHNIQUE: COMPARISON: 01/13/2017 FINDINGS: There is a stable left chest port in good position. Stable cardiomegaly and pulmonary vascular congestion. Stable calcified granulomas in the left hilum. There is probably a trace left pleural effusion stable from prior. No new or focal infiltrates. IMPRESSION: No change from prior. Electronically signed by Jd Mccray 04/08/2017 7:53 AM
[2017-04-08] MEDS ORDERED: NORCO-10 PO PRN (08:39)
[2017-04-08] MEDS ORDERED: ZOFRAN PO PRN (08:39)
[2017-04-08] MEDS ORDERED: TORADOL PO PRN (08:39)
[2017-04-08 08:58] LABS: BASO% 2.5 % (0.0-0.8); EOS# 0.47 X1000 (0.0-0.7); EOS% 6.5 % (0.0-10.0); HEMATOCRIT 22.9 % (37.0-47.0); HEMOGLOBIN 7.8 g/dL (12.0-16.0); IMM GRAN# 0.02 X1000 (0.0-0.04); IMM GRAN% 0.3 % (0.0-0.5); LYMPH# 1.74 X1000 (1.2-3.4); LYMPH% 24.1 % (20.5-51.1); MANUAL DIFF NEEDED? YES; MCH 29.9 PG (27-31); MCHC 34.1 g/dL (33-37); MCV 87.7 FL (81-99); MONO# 0.85 X1000 (0.11-0.59); MONO% 11.8 % (1.7-9.3); MPV 9.5 FL (7.4-10.4); NEUT% 54.8 % (42.2-75.2); PLT 230 X1000 (130-400); RBC 2.61 XMIL (4.2-5.4)
[2017-04-08] MEDS: FOLIC ACID PO SCH (09:45)
[2017-04-08] MEDS: VITAMIN B-12 PO SCH (09:45)
[2017-04-08] MEDS: LOPRESSOR PO SCH ×2 (09:45→20:07)
[2017-04-08] MEDS: LASIX PO SCH (09:45)
[2017-04-08] MEDS: HYDROCHLOROTHIAZIDE PO SCH (09:45)
--- NOTE | 2017-04-08 10:11 | HISTORY AND PHYSICAL ---
PRIMARY CARE PHYSICIAN: Shefali Posadas MD. CHIEF COMPLAINT: Increased shortness of breath and increased swelling in her bilateral lower extremities that was worse when she was walking for 1 week. HISTORY OF PRESENTING ILLNESS: This is a 67-year-old, female, who is well known to this hospitalist service with a history of sickle cell anemia with crisis, who presents to [facility] ER with complaints of increased shortness of breath and increased bilateral lower extremity edema that has been present for about a week and has progressively worsened. States her shortness of breath becomes worse when she walks. States she ran out of her Hyzaar 2 weeks ago. Workup in the ER showed an O2 saturation on room air was 94%. Laboratory data showed a hemoglobin of 5.7, hematocrit of 17.3. She has an elevated D-dimer at 2.39, but this is chronic for her as this is actually one of the lower ones she has had over the past several years. Her ProBNP was 1429. Creatinine is noted to be 1.3 which is her baseline. So, she will be admitted for further evaluation and treatment. PAST MEDICAL HISTORY: Congestive heart failure, hypertension, COPD, sickle cell disease and chronic kidney disease. PAST SURGICAL HISTORY: Cholecystectomy, hysterectomy, tonsillectomy and a port placement. FAMILY HISTORY: She has 2 brothers and 1 sister that have sickle cell disease. SOCIAL HISTORY: She currently lives with family. Denies any tobacco, alcohol, or illicit drug use. ALLERGIES: Oxycodone. HOME MEDICATIONS: 1. Vitamin B 12 1000 mcg p.o. daily. 2. Folic acid 1 mg p.o. daily. 3. Lasix 40 mg p.o. daily. 4. Lortab 10 1 p.o. q. 4-6 hours p.r.n. 5. Toradol 10 mg p.o. q. 6 hours p.r.n. 6. Hyzaar 50/12.5, 1 p.o. daily. 7. Lopressor 50 mg p.o. b.i.d. 8. Zofran 4 mg p.o. q. 6 hours p.r.n. LABORATORY DATA: White blood cell count of 8.49, hemoglobin of 5.7, hematocrit 17.3, platelets 241. PT and INR of 15.8 and 1.23 with a D-dimer of 2.39. Sodium 138, potassium 4.4, chloride 108, CO2 19, BUN of 32, creatinine 1.3, glucose 111. Magnesium 2.1. Total bilirubin of 3.70 and this is also chronic elevation for this patient. An AST of 86, ALT 30, alkaline phosphatase 120. Creatine kinase of 36. Troponin less than 0.010 with a proBNP of 1427. X-RAY DATA: Chest x-ray showed no change from prior. No new or focal infiltrate. REVIEW OF SYSTEMS: She denied any fever, chills, blurred vision, dizziness, chest pain. She had a mild nonproductive cough. Shortness of breath that was worse with ambulating. Denied any abdominal pain, constipation, diarrhea, burning or hurting with urination, and was positive for swelling to her bilateral lower extremities. PHYSICAL EXAMINATION: VITAL SIGNS: On arrival, she had a temperature of 98.7 degrees, pulse 86, respirations 20, blood pressure 175/98, satting 94% on room air. GENERAL: This is a 67-year-old, female, who is sitting on the side of the bed and answers questions appropriately. HEENT: Normocephalic and atraumatic. Pupils are equal, round, and reactive to light. The extraocular movements are intact. The oropharynx and nares are clear. NECK: Supple. LUNGS: Clear to auscultation bilaterally with equal lung expansion and chest wall movement. HEART: With regular rate and rhythm. No murmurs, rubs, or gallops. ABDOMEN: Soft, nontender, nondistended. Bowel sounds are present x4 quadrants. EXTREMITIES: There is no clubbing, cyanosis. Patient is noted to have 2+ pitting edema to bilateral lower extremities. NEUROLOGICAL: The cranial nerves 2-12 are grossly intact. ASSESSMENT: 1. Sickle cell anemia. 2. Sickle cell crisis. 3. Hypertension. 4. Bilateral lower extremity edema. PLAN: She was admitted to the medical unit at [facility]. It is noted that she had an echo on 01/14/2017 that showed an ejection fraction of 55% to 60%, so we will not repeat that at this time. She was given 2 units of packed red blood cells last night in the ER. We will recheck CBC this a.m. Will continue her home medications and place her back on all of her home medications. We will stop the normal saline that was ordered in the ER at 100 mL an hour, and change her diet from regular to healthy heart. Pt is a full code. Dictated by TAM Alexander for Charly Moraes MD cc: TAM Alexander MD Tiffany Hendricks, MD pt examined, agree with above, hopefully home soon APENOT MTDD
[2017-04-08] MEDS: COZAAR PO SCH (11:37)
[2017-04-08 11:55] LABS: EOS 9 % (1-10); HYPOCHROM 1+; LYMPHS 22 % (21-51); MONO 13 % (1-9)
[2017-04-08] MEDS ORDERED: BENADRYL PO ONE (12:34)
[2017-04-08] MEDS ORDERED: TYLENOL PO ONE (12:34)
[2017-04-08] MEDS ORDERED: LASIX IV SCH (12:45)
--- NOTE | 2017-04-08 16:03 | Diag Imaging Result Doc PS360 ---
EXAM: ABDOMEN FLAT/UPRIGHT HISTORY: pain TECHNIQUE: Two views portable exam. COMPARISON: 05/03/2014 FINDINGS: The bowel gas pattern is nonobstructive. There are surgical clips right upper quadrant. There is osteopenia and unchanged compression deformity lower thoracic spine. There is cardiomegaly. No evidence for free air. IMPRESSION: Nonspecific two view abdomen series. Cardiomegaly. Electronically signed by Oly Rob 04/08/2017 4:01 PM
[2017-04-08] MEDS: NORCO-10 PO PRN (17:59)
[2017-04-08] MEDS ORDERED: ZOFRAN ODT PO PRN (18:44)
[2017-04-09 06:16] LABS: HEMOGLOBIN 8.3 g/dL (12.0-16.0)
[2017-04-09 06:17] LABS: HEMATOCRIT 24.8 % (37.0-47.0); MCH 29.6 PG (27-31); MCHC 33.5 g/dL (33-37); MCV 88.6 FL (81-99); MPV 9.9 FL (7.4-10.4); RBC 2.8 XMIL (4.2-5.4)
[2017-04-09 06:39] LABS: ALBUMIN 3.7 g/dL (3.5-5.0); CALCIUM 8.2 mg/dL (8.8-10.2); POTASSIUM 4.7 mmol/L (3.5-5.1); TOTAL BILIRUBIN 3.2 mg/dL (0.20-1.00); TOTAL PROTEIN 6.7 g/dL (6.3-8.3)
[2017-04-09] MEDS: COZAAR PO SCH (09:00)
[2017-04-09] MEDS: FOLIC ACID PO SCH (09:00)
[2017-04-09] MEDS: HYDROCHLOROTHIAZIDE PO SCH (09:01)
[2017-04-09] MEDS: LOPRESSOR PO SCH (09:01)
[2017-04-09] MEDS: LASIX PO SCH (09:01)
[2017-04-09] MEDS: VITAMIN B-12 PO SCH (09:01)
[2017-04-09] MEDS: NORCO-10 PO PRN (10:25)
[2017-04-09 11:24] VITALS: BP 155/73
--- NOTE | 2017-04-09 15:54 | DISCHARGE SUMMARY ---
ADMISSION DATE: 04/07/2017 DISCHARGE DATE: 04/09/2017 PRIMARY CARE PHYSICIAN: Dr. Shefali Posadas. ADMISSION DIAGNOSES: 1. Sickle cell anemia. 2. Sickle cell crisis. 3. Hypertension. 4. Bilateral lower extremity edema. DISCHARGE DIAGNOSES: 1. Sickle cell anemia, improved. 2. Sickle cell crisis, resolved. 3. Hypertension. 4. Bilateral lower extremity edema, resolved. SUMMARY OF FINDINGS: This is a 67-year-old female who presented to the emergency room with complaints of increased shortness of breath and increased bilateral lower extremity edema that had been present for about a week, and progressively worsened. States her shortness of breath becomes worse when she walks. States she had been out of her Hyzaar for 2 weeks. Emergency room workup showed a room air saturation 94%. Her hemoglobin and hematocrit was 5.7 and 17.3. She has a chronically elevated D-dimer and a chronically elevated total bilirubin, so she was admitted. She was given a total of 3 units of packed red blood cells. Her hemoglobin and hematocrit is now up to 8.3 and 24.8. She states her shortness of breath has resolved. She received Lasix 40 mg IV after her transfusion, and she has continued it daily. We placed her back on her home medications, including her Hyzaar, and she is feeling much better, saturating 97% on room air, and it is felt that she can safely be discharged home today. DISCHARGE MEDICATIONS: She will continue her home medications as follows: 1. Vitamin B12 1000 mcg p.o. daily. 2. Folic acid 1 mg p.o. daily. 3. Lasix 40 mg p.o. daily. 4. Fulshear 10 one p.o. q.4-6 hours p.r.n. 5. Toradol 10 mg p.o. q.6 hours p.r.n. 6. Hyzaar 50/12.5 one p.o. daily, #30, with no refills. 7. Lopressor 50 mg p.o. b.i.d. 8. Zofran 4 mg p.o. q.6 hours p.r.n. FOLLOWUP: She states she has an appointment scheduled with Dr. Posadas this next week, and she will follow up with that appointment. Dictated by TAM Alexander for Charly Moraes MD cc: TAM Alexander MD Tiffany Hendricks, MD pt examined, agree with above APENOT MTDD
== END 2017-04-09 12:10 | disposition home or self-care (01) ==
LOC: P.MEDSURG 19:17 → P.ED 19:17 → SUATTDRO 20:48 → OBSVTOIN 20:48
PROVIDERS: ATTEND Internal Medicine

== ENCOUNTER 2017-06-23 12:30 | Observation (INO) ==
[2017-06-23 15:07] LABS: BASO% 1.7 % (0.0-0.8); EOS# 0.44 X1000 (0.0-0.7); EOS% 5.4 % (0.0-10.0); HEMATOCRIT 16.8 % (37.0-47.0); HEMOGLOBIN 5.6 g/dL (12.0-16.0); IMM GRAN# 0.02 X1000 (0.0-0.04); IMM GRAN% 0.2 % (0.0-0.5); LYMPH# 2.62 X1000 (1.2-3.4); LYMPH% 32.1 % (20.5-51.1); MANUAL DIFF NEEDED? NO; MCH 30.3 PG (27-31); MCHC 33.3 g/dL (33-37); MCV 90.8 FL (81-99); MONO# 1.33 X1000 (0.11-0.59); MONO% 16.3 % (1.7-9.3); MPV 9.8 FL (7.4-10.4); NEUT% 44.3 % (42.2-75.2); PLT 218 X1000 (130-400); RBC 1.85 XMIL (4.2-5.4)
[2017-06-23 15:29] LABS: CALCIUM 8.4 mg/dL (8.8-10.2); POTASSIUM 5.2 mmol/L (3.5-5.1); TOTAL BILIRUBIN 2.8 mg/dL (0.20-1.00); TOTAL PROTEIN 7.8 g/dL (6.3-8.3)
[2017-06-23] MEDS ORDERED: TYLENOL PO PRN (16:22)
[2017-06-23] MEDS ORDERED: ZOFRAN IV PRN (16:22)
[2017-06-23] MEDS ORDERED: MORPHINE IV PRN ×2 (16:22→16:27)
[2017-06-23] MEDS ORDERED: NORCO-10 PO PRN (17:04)
--- NOTE | 2017-06-23 17:51 | EKG Report ---
Test Performed on : 06/23/2017 4:41:45 PM Test Reason : ER Blood Pressure : / mmHG Vent. Rate : 086 BPM Atrial Rate : 086 BPM P-R Int : 184 ms QRS Dur : 082 ms QT Int : 378 ms P-R-T Axes : 065 068 046 degrees QTc Int : 452 ms Normal sinus rhythm. Normal ECG When compared with ECG of 30-MAR-2017 02:15, Nonspecific T wave abnormality no longer evident in Inferior leads Nonspecific T wave abnormality no longer evident in Lateral leads Unconfirmed Result
[2017-06-23] MEDS: NS 1,000 ML IV SCH (17:52)
--- NOTE | 2017-06-23 18:16 | HISTORY AND PHYSICAL ---
PRIMARY CARE PHYSICIAN: Shefali Posadas MD. CHIEF COMPLAINT: Increasing shortness of breath and dizziness. HISTORY OF PRESENT ILLNESS: This is a 67-year-old, female who presented to the emergency room complaining of shortness of breath, dizziness and nausea. She states that if she walks more than about 10 or 15 feet she does become dizzy and has trouble holding her balance. She was found to have a hemoglobin and hematocrit of 5.6 and 16.8. She does have a history of sickle cell. She states that she is not in crisis. She has noticed over the last week or so that she has had some lower extremity edema. She denies orthopnea, PND or productive cough. Workup in the ER revealed room air saturations 96-97% with a hemoglobin of 5.6, hematocrit 16.8, as well as a potassium of 5.2, creatinine 1.7 with a baseline being 1.3. Therefore, she is being admitted for further evaluation and treatment. PAST MEDICAL HISTORY: Congestive heart failure with her echocardiogram in January 2017 revealing an EF of 55-60%, hypertension, COPD, sickle cell disease, chronic kidney disease with a baseline creatinine of 1.3, pulmonary hypertension. PAST SURGICAL HISTORY: Cholecystectomy, hysterectomy, tonsillectomy and port placement. FAMILY HISTORY: She has 2 brothers and 1 sister who have sickle cell. SOCIAL HISTORY: She lives with family members. She denies alcohol, tobacco, or illicit drug use. ALLERGIES: Oxycodone which causes nausea and vomiting. HOME MEDICATIONS: Zofran, Lopressor, Hyzaar, Toradol, Lortab 10, Lasix, folic acid, and vitamin B12. REVIEW OF SYSTEMS: A 14 point review of systems was discussed with patient with pertinent positives stated in HPI. She denied fever, chills, palpitations, syncope, chest pain, cough, PND, orthopnea, nausea, vomiting, diarrhea, constipation, black or bloody vomitus, black or bloody stools. PHYSICAL EXAMINATION: GENERAL: This is a 67-year-old, female, who is sitting up in the bed eating, in no distress. VITAL SIGNS: Blood pressure 150/69, heart rate 90, respirations 18, temperature 98.3 degrees oral with room air saturations 96%. HEENT: Head is normocephalic, atraumatic. Pupils equal, round, reactive to light. EOMs are intact. Sclerae anicteric. Mucous membranes are moist. NECK: Supple. Trachea midline. CARDIOVASCULAR: Regular rate and rhythm. S1, S2 appreciated. PULMONARY: Breath sounds are clear. No increased work of breathing noted. Chest does rise and fall symmetrically with respiration. GASTROINTESTINAL: Abdomen is soft, nontender, nondistended with bowel sounds in all 4 quadrants. BACK: No CVAT. No spine tenderness. EXTREMITIES: No clubbing, cyanosis. She does have 1 to 2+ pitting edema bilaterally. NEUROLOGIC: She is alert and oriented x3. Cranial nerves 2-12 grossly intact. ASSESSMENT: 1. Symptomatic anemia. 2. Bilateral lower extremity edema. 3. Sickle cell anemia. 4. Hypertension. 5. Hyperkalemia. 6. Chronic kidney disease with a baseline creatinine of 1.3. PLAN: 1. The patient will be admitted to the Medical Unit at [facility]. We will give a unit of packed cells and repeat labs in the morning. We will identify her home medications and continue as appropriate. As she does have an elevated potassium, we will give diuretics. We will gently hydrate. We will give her Lasix. We will hold her hydrochlorothiazide and losartan at present. We will renal dose medications as appropriate. We will her a healthy heart diet. 2. The patient is a full code. 3. Further treatments pending hospital course. Dictated by TAM Olivera for Edu Damico MD cc: TAM Olivera MD
[2017-06-23] MEDS: BENADRYL PO PRN (20:50)
[2017-06-23] MEDS: LOPRESSOR PO SCH (20:50)
[2017-06-24] MEDS: BENADRYL PO PRN ×2 (01:41→05:48)
[2017-06-24 06:05] LABS: ALBUMIN 3.6 g/dL (3.5-5.0); CALCIUM 7.9 mg/dL (8.8-10.2); POTASSIUM 5.2 mmol/L (3.5-5.1); TOTAL BILIRUBIN 2.5 mg/dL (0.20-1.00)
[2017-06-24 06:07] LABS: BASO% 1.3 % (0.0-0.8); EOS# 0.52 X1000 (0.0-0.7); EOS% 6.1 % (0.0-10.0); HEMATOCRIT 17.3 % (37.0-47.0); HEMOGLOBIN 5.8 g/dL (12.0-16.0); IMM GRAN# 0.02 X1000 (0.0-0.04); IMM GRAN% 0.2 % (0.0-0.5); LYMPH# 2.95 X1000 (1.2-3.4); LYMPH% 34.8 % (20.5-51.1); MANUAL DIFF NEEDED? YES; MCH 29.9 PG (27-31); MCHC 33.5 g/dL (33-37); MCV 89.2 FL (81-99); MONO# 1.22 X1000 (0.11-0.59); MONO% 14.4 % (1.7-9.3); MPV 10.2 FL (7.4-10.4); NEUT% 43.2 % (42.2-75.2); PLT 193 X1000 (130-400); RBC 1.94 XMIL (4.2-5.4)
[2017-06-24 07:03] LABS: BASO 1 % (0-1); EOS 5 % (1-10); HYPOCHROM 1+; LYMPHS 35 % (21-51); MONO 14 % (1-9); NRBC 2 % (0-0); TARGET CELLS OCCASIONAL
[2017-06-24] MEDS: VITAMIN B-12 PO SCH (09:34)
[2017-06-24] MEDS: LOPRESSOR PO SCH ×2 (09:34→20:49)
[2017-06-24] MEDS: FOLIC ACID PO SCH (09:34)
[2017-06-24] MEDS: LASIX PO SCH (09:34)
[2017-06-24] MEDS: NS 1,000 ML IV SCH (09:37)
--- NOTE | 2017-06-24 11:18 | PROGRESS NOTE ---
DATE: 06/24/2017 SUBJECTIVE: Ms. Tidwell states that she may feel just a little better today. She did receive a unit of blood during the night. OBJECTIVE: Vital Signs: Blood pressure is 135/72 with a heart rate of 76, respirations are 18, temperature is 98 degrees with room air saturations of 97% to 98%. General: She is awake and alert. She is very pleasant. Cardiovascular: Regular rate and rhythm. S1 and S2 appreciated. Pulmonary: Breath sounds are clear with no increased work of breathing noted. Gastrointestinal: Abdomen is soft, nontender, nondistended. Bowel sounds in all 4 quadrants. Extremities: No clubbing or cyanosis. She does have 1+ pitting edema bilateral. Neurologic: She is alert and oriented x3 with cranial nerves 2-12 grossly intact. LABS: WBC is 8.4 with hemoglobin 5.8, hematocrit 17.3, and platelets of 193. Sodium is 137, potassium 5.2, BUN 30 creatinine 1.7 with a glucose of 101. Total bilirubin is 2.5 with AST of 58, her calcium is 7.9 and it corrects at. 8.2. ASSESSMENT: 1. Symptomatic anemia. 2. Bilateral lower extremity edema. 3. Sickle cell anemia. 4. Hypertension. 5. Hyperkalemia. 6. Chronic kidney disease with a baseline creatinine of 1.3. PLAN: We will give a second unit of blood today. We will continue with her current regimen. Dictated by TAM Olivera for Edu Damico MD cc: TAM Olivera MD
--- NOTE | 2017-06-24 17:00 | PROGRESS NOTE ---
DATE: 06/24/2017 SUBJECTIVE: Ms. Tidwell states she still feels terrible this morning, she is still very tired, fatigued, feels weak all over. Denies any chest pain, palpitations. Denies any fevers, chills. Denies any GI or issues. OBJECTIVE: Vital Signs: Reviewed. General: She is awake, alert, pleasant to talk with. She is in no respiratory distress. Vital signs: BP 150/70, heart rate 92, respiratory 20. HEENT: Normocephalic, atraumatic. COURTNEY. Neck: Supple. CV: Regular rate. Chest: Clear. Nonlabored. Abdomen: Soft. Extremities: Moves all extremities although generalized weakness. Neurologic: No focal changes. LABS: Hemoglobin and hematocrit 5 and 17, was 5 and 16 prior to the 1st unit of transfusion. BUN 30, creatinine 1.7, AST 58, total bilirubin 2.5. ASSESSMENT: 1. Symptomatic anemia. 2. Sickle cell anemia. 3. Hypertension. 4. Chronic kidney disease with acute change, her baseline is 1.3, she is currently 1.7 this morning. 5. Hyperbilirubinemia has improved somewhat. PLAN: We will type, cross and transfuse 2 more units of blood for a total of 3 units at this point. I expect her hemoglobin and hematocrit was actually lower than 5 due to concentration. The 1st unit of blood actually did not change her hemoglobin and hematocrit at all. She is still symptomatic. Will continue to follow. cc: Edu Damico MD
[2017-06-25 06:33] LABS: ALBUMIN 3.7 g/dL (3.5-5.0); CALCIUM 8.2 mg/dL (8.8-10.2); POTASSIUM 5.4 mmol/L (3.5-5.1); TOTAL BILIRUBIN 2.5 mg/dL (0.20-1.00); TOTAL PROTEIN 7.1 g/dL (6.3-8.3)
[2017-06-25 06:41] LABS: HEMATOCRIT 24.2 % (37.0-47.0); HEMOGLOBIN 8.1 g/dL (12.0-16.0); MCH 29.3 PG (27-31); MCHC 33.5 g/dL (33-37); MCV 87.7 FL (81-99); MPV 11.3 FL (7.4-10.4); RBC 2.76 XMIL (4.2-5.4)
[2017-06-25] MEDS: VITAMIN B-12 PO SCH (08:23)
[2017-06-25] MEDS: FOLIC ACID PO SCH (08:24)
[2017-06-25] MEDS: LASIX PO SCH (08:24)
[2017-06-25] MEDS: LOPRESSOR PO SCH (08:24)
[2017-06-25] MEDS ORDERED: ZOFRAN ODT PO PRN (09:40)
[2017-06-25] MEDS ORDERED: TORADOL PO PRN (09:40)
[2017-06-25] MEDS ORDERED: HYDROCHLOROTHIAZIDE PO SCH (10:00)
[2017-06-25] MEDS ORDERED: COZAAR PO SCH (10:00)
[2017-06-25 11:43] VITALS: BP 141/62
--- NOTE | 2017-06-25 12:25 | DISCHARGE SUMMARY ---
ADMISSION DATE: 06/23/2017 DISCHARGE DATE: 06/25/2017 DATE OF ADMISSION: 06/23. DATE OF DISCHARGE: 06/25. DISCHARGE DIAGNOSES: 1. Sickle cell anemia, resolved. Hemoglobin and hematocrit 8 and 24 on discharge. 2. Fatigued, improved. 3. Symptomatic anemia, improved. 4. Hypertension, stable. 5. Hypokalemia, stable. 6. Chronic kidney disease with a baseline of 1.3-1.5. CONSULTATIONS: None. PROCEDURES: None. BRIEF HOSPITAL COURSE: The patient is a 59-year-old female who was admitted as on the [facility]. Treated in the usual fashion. Placed on normal protocol with normal saline. She was type crossed transfuse 3 units to raise her hemoglobin and hematocrit to her baseline at 8 and 24. DISCHARGE PHYSICAL EXAMINATION: On discharge she is awake, alert. She is in no distress. She is feeling better. She is able to ambulate in the room. DISPOSITION: The patient will be discharged home. She will continue to follow with her primary care. LABS: Her bilirubin is 3.5. AST and ALT have dropped down to her baseline of 60 and 33. DISCHARGE MEDICATIONS: No changes were made on her chronic home medications. TIME SPENT: 35 minutes was spent in total care. cc: Edu Damico MD
[2017-06-26] MEDS ORDERED: LOSARTAN PO SCH (09:00)
[2017-06-26] MEDS ORDERED: HYDROCHLOROTHIAZIDE PO SCH (09:00)
--- NOTE | 2017-07-25 11:01 | PROVIDER DOCUMENTATION ---
This chart was entered by Albertina Crain Scribe, acting as scribe for Genie Vargas MD. HPI-Rash/Wound/ReCheck - General Chief Complaint: General Adult Stated Complaint: DIZZY/NAUSEA/RASH Time Seen by Provider: 06/23/17 13:45 Source: patient Allergies/Adverse Reactions: Allergies Allergy/AdvReac Type Severity Reaction Status Date / Time oxycodone HCl * AdvReac Intermediate NAUSEA/VOMI Verified 06/23/17 12:51 [From Percocet] TING Home Medications: Home Medication List Medication Instructions Recorded Confirmed Last Taken Type Hydrocodone/Acetaminophen [Lortab 1 tab PO Q4-6H PRN PRN 08/22/12 06/23/1701/12 History 10-500 Tablet] Metoprolol [Lopressor] 50 mg PO BID 08/22/12 06/23/17 01/12/17 History 50mg Folic Acid 1 mg PO DAILY 04/04/15 06/23/17 01/12/17 History Furosemide [Lasix] 40 mg PO DAILY 10/06/15 06/23/17 01/12/17 History Cyanocobalamin (Vitamin B-12) 1,000 mcg PO DAILY 12/26/15 06/23/17 01/12/17 History [Vitamin B12] Ketorolac [Toradol] 10 mg PO Q6H PRN PRN #6 tablet 02/14/17 06/23/17 Unknown Rx Losartan/Hctz [Hyzaar 50/12.5 mg] 50 mg PO DAILY #30 tablet 04/09/17 06/23/17 Unknown Rx Ondansetron [Zofran] 4 mg PO Q6H PRN PRN 06/23/17 06/23/17 Unknown History Levofloxacin [Levaquin] 500 mg PO DAILY #7 tablet 07/20/17 Unknown Rx - History of Present Illness-Dermatology Nature of Presenting Problem: PT is a 67y/o F that presents to ED with a rash on rt arm. PT states she has had it since January and hydrocortisone cream is not providing relief. The PT also c/o SOB while laying down, Nausea, feeling dizzy and losing her balance. PT states her hemoglobin is 5. . Location: reports: upper extremity (RT arm) Quality: reports: itchy Severity: reports: moderate Onset/Duration: reports: other (5 months) Timing: reports: still present Context/Associated Symptoms: reports: rash. denies: fever, sore throat Identifiable cause?: No Exposure: reports: unknown cause Modifying Factors: improves with: other (PT states hydrocortisone is not helping ) Similar Symptoms Previously?: No Recently seen or treated by another doctor?: No Review of Systems - Adult - REVIEW OF SYSTEMS - ADULT Constitutional: denies: chills, fever, fatique Eyes: reports: no symptoms reported Ears, Nose, Mouth & Throat: reports: no symptoms reported Cardiovascular: reports: edema (SRI legs) Respiratory: reports: shortness of breath (while laying down) Gastrointestinal: reports: nausea. denies: abdominal pain, diarrhea, vomiting Genitourinary: denies: dysuria, frequency Musculoskeletal: reports: no symptoms reported Integumentary: reports: itching (RT arm since January 2017) Neurological: reports: dizziness/vertigo. denies: headache/migraines, slurred speech Psychiatric: reports: no symptoms reported Endocrine: reports: no symptoms reported Hematologic/Lymphatic: reports: no symptoms reported Allergic/Immunologic: reports: no symptoms reported All Other Systems: Reviewed and Negative Past History - Adult - PAST MEDICAL HISTORY-ADULT Review of Records: reports: Old Records Reviewed, Nursing Assessment Review, Medications Reviewed Major Childhood Illnesses: reports: denies history Cardiovascular: reports: CHF, HTN Respiratory: denies: asthma, bronchitis, COPD, pneumonia Gastrointestinal: reports: cholelithiasis Genitourinary: denies: kidney disease, kidney stones, polycystic kidney disease Musculoskeletal: reports: chronic pain Endocrine/Immune: reports: Sickle Cell disease Sickle Cell Genotype:: SS Other Conditions: - PRIOR SURGERIES/PROCEDURES Surgical/Procedure History: reports: cholecystectomy, hysterectomy, tonsillectomy, other (port) - PRIOR HOSPITALIZATIONS Prior Hospitalizations: reports: for similar symptoms - IMMUNIZATION STATUS Childhood Immunizations: See Nurse Assessment Flu Vaccine: See Nurse Assessment - FAMILY HISTORY Family History: hereditary disease Physical Exam-General - PHYSICAL EXAM-ADULT Initial Vital Signs Reviewed: Yes - CONSTITUTIONAL General Appearance: appears well, alert, no apparent distress, other (PT has port on L side) - EYES Eyes: PERRL/EOMI, pink conjunctivae - HEAD, EARS, NOSE, MOUTH & THROAT HENMT: normocephalic/atraumatic, moist mucous membranes, normal ENT inspection - NECK Neck: non-tender, full range of motion, supple - RESPIRATORY Respiratory: chest non-tender, lungs clear, normal breath sounds - CARDIOVASCULAR Cardiovascular: normal peripheral pulses, regular rate, rhythm - GASTROINTESTINAL (ABDOMEN) Abdominal Exam: normal bowel sounds, non tender, soft - LYMPHATIC Lymphatic: no adenopathy - MUSCULOSKELETAL Back Exam: normal inspection, no CVA tenderness, no vertebral tenderness Extremity: normal range of motion, non-tender, normal gait - SKIN Integumentary: pallor (pale nail beds, pale skin), other (dry dermatitis RT tricep region) - NEUROLOGIC Neurologic: tariff compiler II-XII nml as tested, grossly normal - PSYCHIATRIC Psych/Mental Status: normal mood/affect, normal thought content, oriented x 3 Progress - PLAN OF CARE/RESULTS Progress/Plan/Lab Results: Orders Category Date Time Status Admit - [facility] Routine AdmDCTranf 06/23/17 16:22 Ordered Call Admitting on Arrival AT ADMISSION Care 06/23/17 16:22 Completed IV Insertion ORDERED Care 06/23/17 14:35 Completed Transfuse .Give-Transfuse Care 06/23/17 15:09 Active Vital Signs Order ARRIVAL TO ROOM Care 06/23/17 16:22 Active Heart Healthy Diet Diet 06/23/17 15:38 Completed CBC WITH DIFF [HEME] Stat Lab 06/23/17 14:47 Completed COMPREHENSIVE METABOLIC PANEL [CHEM] Stat Lab 06/23/17 14:47 Completed LRPC (RED CELLS) [BBK] Stat Lab 06/23/17 14:47 Completed TYPE & SCREEN [BBK] Stat Lab 06/23/17 14:47 Completed Acetaminophen [Tylenol] Med 06/23/17 16:22 Discontinued 650 mg PO Q6H PRN PRN Morphine Med 06/23/17 16:22 Discontinued 2 mg IV Q2H PRN PRN Ondansetron [Zofran] Med 06/23/17 16:22 Discontinued 4 mg IV Q4H PRN PRN Transfer/Admit Order [TRANSFER] Routine Transfer 06/23/17 15:37 Completed Result Diagrams: 06/25/17 05:30 06/25/17 05:30 Departure - Departure Date of Disposition Decision: 06/23/17 Time of Disposition Decision: 14:45 DIAGNOSIS: Severe anemia Disposition: ADMITTED INPATIENT 09 Certified Medical Emergency: Emergent Condition: Stable - Critical Care Note This patient required my direct & personal management of CC.: No Attestation - Physician/ SEBASTIAN Attestation Patient care was provided by Advanced Practice Provider:: No The physician spent face to face time with patient:: Yes Advanced Practice Provider documentation review:: Supervising physician onsite and consulted in the evaluation and care of this patient. The physician did have a face to face encounter with the patient. This chart was documented by the indicated scribe, (Albertina Crain Scribe) and accurately reflects the services I performed and decisions made by me, Genie Vargas MD, as attested by the provider's signature.
== END 2017-06-25 11:55 | disposition home or self-care (01) ==
LOC: P.ED 12:30 → INTOOBSV 16:04 → P.MEDSURG 16:04
PROVIDERS: ATTEND Family Medicine